=== PATIENT | female | born 1935 | race Caucasian/White ===

== ENCOUNTER 2021-07-17 09:41 | Emergency (ER) | payer MEDICARE, OTHER ==
[2021-07-17 10:13] LABS: BASOPHIL 0.5 % (0-2); EOSINOPHIL 0 % (0-7); HCT 27.8 % (37.0-47.0); HGB 8.4 g/dl (12.5-16.0); LYMPHOCYTE 10.7 % (15-48); MCH 29.2 pg (25.0-31.0); MCHC 30.2 g/dL (32.0-36.0); MCV 96.5 fL (78.0-100.0); MONOCYTE 5.4 % (0-12); MPV 10.6 fL (6.0-9.5); NEUTROPHIL 82.8 % (41-80); NRBC 0; PLT 234 K/uL (150-400); RBC 2.88 M/uL (4.20-5.40); RDW 14.2 % (11.5-14.0); WBC 17.2 K/uL (4.0-10.5)
[2021-07-17 10:34] LABS: ALBUMIN 3.3 g/dL (3.4-5.0); ALKALINE PHOSHATASE 68 U/L (46-116); ALT <6 U/L (14-59); AST 10 U/L (15-37); BILIRUBIN - TOTAL 0.8 mg/dL (0.2-1.0); BUN 41 mg/dL (7-18); BUN/CREAT RATIO (CALC) 14.7 RATIO; CHLORIDE 104 mmol/L (98-107); CO2 (BICARBONATE) 19 mmol/L (21-32); CREATININE 2.79 mg/dL (0.51-0.95); GLOBULIN (CALCULATION) 3.5 g/dL; GLUCOSE 195 mg/dL (74-106); TOTAL PROTEIN 6.8 g/dL (6.4-8.2)
[2021-07-17 10:40] LABS: LACTIC ACID 9.4 mmol/L (0.4-1.9)
[2021-07-17 10:51] LABS: BILIRUBIN NEGATIVE (NEGATIVE); BLOOD 2+ Ery/uL (NEGATIVE); COLOR YELLOW (YELLOW); GLUCOSE (U) NORMAL (NORMAL); LEUKOCYTES 2+ Leu/uL (NEGATIVE); NITRITE NEGATIVE (NEGATIVE); PROTEIN 2+ mg/dL (NEGATIVE); UROBILINOGEN 0.2 mg/dL (0.2-1.0)
[2021-07-17 10:55] LABS: CORONAVIRUS 2019 SARS-COV-2 NEGATIVE (NEGATIVE); INFLUENZA A NAA NEGATIVE (NEGATIVE)
[2021-07-17 10:56] LABS: CLARITY CLOUDY (CLEAR)
[2021-07-17 11:09] LABS: BACTERIA 4+; URINARY WBC 20-50
== END 2021-07-17 13:33 | disposition expired ==
LOC: FER 09:41
PROVIDERS: Internal Medicine
DX: I46.9 Cardiac arrest, cause unspecified (principal); J44.0 Chronic obstructive pulmonary disease with (acute) lower respiratory infection; J18.9 Pneumonia, unspecified organism; Z20.822 Contact with and (suspected) exposure to COVID-19; E87.2 Acidosis; E78.5 Hyperlipidemia, unspecified; I10 Essential (primary) hypertension; Z86.73 Personal history of transient ischemic attack (TIA), and cerebral infarction without residual deficits; F17.210 Nicotine dependence, cigarettes, uncomplicated; R10.817 Generalized abdominal tenderness
CPT/HCPCS: 36415; 71045; 80053; 81001; 83605; 84145; 84484; 85025; 87040; 87076; 87088; 87186; 92950; 93005; 96365; 96366; 96368; 96375; J0171; J0461; J1100; J2543; J2704; J3370; J7030; J7050; J7120; U0002